=== PATIENT | female | born 1940 | race Caucasian/White ===

== ENCOUNTER 2018-03-11 22:14 | Emergency (ER) | payer OTHER ==
[~2018-03-11] VITALS: Ht 149.9 cm; Wt 83.3 kg
[~2018-03-11 22:14] MED LIST: AMBIEN5 MG PO; ASPIR-LOW81 MG PO; Ambien PO; Aspirin Chewable PO; BENADRYL25 MG PO; DAILY VITAMIN1 EAC8 PO; DAILY VITE1 EAC1 PO; HUMALOG; HUMALOG100 UNIT/1 SC; KEFLEX500 MG PO; LANTUS 10100 UNITS/ SC; LANTUS 3 M100 UNITS1 SC; LASIX40 MG PO; LO-DOSE ASPIRIN81 M2 PO; LOPRESSOR25 MG PO; LOTREL PO; Lasix PO; Lopressor PO; Lotensin PO; MEVACOR40 MG PO; MULTIVITAMIN WOMENS PO; Mevacor PO; NITROGLYCERIN0.4 MG SL; Nitrostat,NitroQuick SL; PLAVIX75 MG PO; PRILOSEC20 MG PO; Plavix PO; PriLOSEC PO; THERAGRAN1 TABLET PO; TIZANIDINE HCL4 M1 PO; TYLENOL PM1 CAPLET PO; Tylenol PM PO; XANAX0.25 MG PO; ZANAFLEX4 M1 PO; [UNRECOGNIZED DRUG - REMARK] PO
[2018-03-11 22:50] LABS: BASOPHIL (%) 0.5 % (0-1); EOSINOPHIL (%) 2.6 % (0-5); EOSINOPHIL COUNT 0.2 K/uL (0-0.3); HEMATOCRIT 34.6 % (36.0-46.0); HEMOGLOBIN 11.4 G/DL (11.9-15.5); IMMATURE GRANULOCYTE (%) 1.3 % (0.0-0.7); LYMPHOCYTE (%) 40.5 % (15-42); LYMPHOCYTE COUNT 3.4 K/uL (1.0-2.8); MCH 30.2 PG (29.0-34.0); MCHC 32.9 G/DL (30.0-36.0); MCV 91.8 FL (83-99); MONOCYTE (%) 5.9 % (3-12); MONOCYTE COUNT 0.5 K/uL (0-0.8); NEUTROPHIL (%) 49.2 % (45-76); NEUTROPHIL COUNT 4.2 K/uL (1.8-6.4); NRBC (%) 0.2 /100 WBC (0-0); PLATELET COUNT 218 K/uL (156-360); RBC DIS.WIDTH-CV 12.7 % (11.8-14.6); RBC DIS.WIDTH-SD 42.1 % (39-53); RED BLOOD COUNT 3.77 M/uL (3.80-5.20); WHITE BLOOD COUNT 8.5 K/uL (4.1-10.2)
[2018-03-11 22:56] LABS: INTER. NORMALIZED RATIO 1.1
[2018-03-11 22:59] LABS: PTT 32.1 SEC (25-37)
[2018-03-11 23:03] LABS: AMYLASE 67 IU/L (1-118); CHLORIDE 108 mEq/L (99-109); POTASSIUM 3.9 mEq/L (3.7-5.4); SODIUM 144 mEq/L (136-147)
[2018-03-11 23:05] LABS: GLUCOSE 277 mg/dL (70-99)
[2018-03-11 23:08] LABS: SERUM ETHYL ALCOHOL < 10 mg/dL
[2018-03-11 23:09] LABS: CREATININE 1.4 mg/dL (0.6-1.3); GFR ESTIMATE (CALCULATED) 39 mL/min/
[2018-03-11 23:10] LABS: UREA NITROGEN (BUN) 46 mg/dL (9-23)
[2018-03-11 23:12] LABS: LIPASE 84 U/L (1.0-51.0)
[2018-03-11 23:17] LABS: TROP-I INTERPRETATION NEGATIVE; TROPONIN-I 0.01 ng/mL (0.0-0.30)
[2018-03-11 23:35] LABS: APPEARANCE SL.HAZY ((CLEAR)); BILIRUBIN NEGATIVE; BLOOD SMALL; COLOR YELLOW ((YELLOW)); GLUCOSE (STRIP) >=500; KETONES NEGATIVE; LEUKOCYTES LARGE; NITRITE POSITIVE; PROTEIN (STRIP) 100; SPECIFIC GRAVITY 1.014 (1.000-1.030); UROBILINOGEN 0.2 MG/DL (0.2-1.0)
[2018-03-11] MEDS ORDERED: VANTIN100 MG PO (23:41)
[2018-03-11 23:45] LABS: BACTERIA 3+ /HPF; EPITHELIAL CELLS 1+ /HPF; MUCUS TRACE /LPF; RED BLOOD CELLS 0-5 /HPF (0-5); UCUL ADDED? YES; WHITE BLOOD CELLS TNTC /HPF (0-5)
[2018-03-12] MEDS ORDERED: VANTIN100 MG PO (00:30)
[2018-03-12 00:31] VITALS: BP 149/50
== END 2018-03-12 00:36 | disposition home or self-care (01) ==
LOC: EME → TRA 22:14 → EME 22:25 → EDBD 22:25 → TRA 03-12 00:36
PROVIDERS: Emergency Medicine
DX: S00.93XA Contusion of unspecified part of head, initial encounter (principal); E86.0 Dehydration; N30.01 Acute cystitis with hematuria; D64.9 Anemia, unspecified; W18.30XA Fall on same level, unspecified, initial encounter; Y92.009 Unspecified place in unspecified non-institutional (private) residence as the place of occurrence of the external cause; E11.65 Type 2 diabetes mellitus with hyperglycemia; I12.9 Hypertensive chronic kidney disease with stage 1 through stage 4 chronic kidney disease, or unspecified chronic kidney disease; N18.9 Chronic kidney disease, unspecified; E11.22 Type 2 diabetes mellitus with diabetic chronic kidney disease; K21.9 Gastro-esophageal reflux disease without esophagitis; Z95.1 Presence of aortocoronary bypass graft; Z96.41 Presence of insulin pump (external) (internal); Z79.4 Long term (current) use of insulin; Z79.02 Long term (current) use of antithrombotics/antiplatelets; Z79.82 Long term (current) use of aspirin; Z90.49 Acquired absence of other specified parts of digestive tract; Z87.891 Personal history of nicotine dependence
CPT/HCPCS: 70450; 71045; 72125; 72131; 80048; 81003; 82150; 83690; 84484; 85025; 85610; 85730; 87077; 87086; 87186; 93005; 99281; 99284; G0480